=== PATIENT | female | born 1960 | race Caucasian/White ===

== ENCOUNTER 2020-06-14 10:20 | Emergency (ER) | payer BC, OTHER ==
[~2020-06-14] VITALS: Ht 157.5 cm; Wt 65.3 kg
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
[2020-06-14] MEDS ORDERED: EPINEPHRINE (1:1000) 1 MG/ML AMPUL ONE (10:37)
[2020-06-14] MEDS ORDERED: diphenhydrAMINE HCL 50 MG/ML VIAL ONE (10:37)
[2020-06-14] MEDS ORDERED: FAMOTIDINE/PF INJ 20 MG/2 ML VIAL IV ONE (10:38)
[2020-06-14] MEDS ORDERED: methylPREDNISolone SOD SUCC 125 MG/2ML VIAL ONE (10:38)
--- NOTE | 2020-06-14 10:38 | NUR ---
PT SEEN AND EXAMINED BY .
[2020-06-14] MEDS ORDERED: FAMOTIDINE (20 MG) 20 MG TABLET ONE (10:42)
--- NOTE | 2020-06-14 10:44 | NUR ---
PT REFUSED EKG. AWARE.
--- NOTE | 2020-06-14 10:45 | NUR ---
IV LINE ESTABLISHED BLOOD DRAWN AND SENT TO LAB.
[2020-06-14] MEDS ORDERED: IV NS 0.9% 1,000 ML BAG IV ONE (11:00)
[2020-06-14] MEDS ORDERED: diphenhydrAMINE HCL 50 MG/ML VIAL IV ONE (11:00)
[2020-06-14] MEDS ORDERED: EPINEPHRINE (1:1000) MDV 30 MG/30ML VIAL SUBCUT ONE (11:00)
[2020-06-14] MEDS ORDERED: FAMOTIDINE (20 MG) 20 MG TABLET PO ONE (11:00)
[2020-06-14] MEDS ORDERED: methylPREDNISolone SOD SUCC 125 MG/2ML VIAL IV ONE (11:00)
[2020-06-14 11:06] LABS: BASOPHILS % (AUTO) 0.3 % (0.0-2.0); HEMATOCRIT 49 % (33-45); HEMOGLOBIN 16.6 g/dL (11.5-14.8); LYMPHOCYTES % (AUTO) 25.4 % (20.0-44.0); MEAN CORPUSCULAR HGB CONC 34 g/dl (31.0-36.0); MEAN CORPUSCULAR VOLUME 94 fL (82-100); MONOCYTES # (AUTO) 0.6 /CMM (0.1-1.30); MONOCYTES % (AUTO) 7.5 % (2.0-12.0); NEUTROPHILS % (AUTO) 64.8 % (43.0-81.0); PLATELET COUNT (AUTO) 299 /CMM (150-450); RED BLOOD CELL COUNT(AUTO) 5.26 MIL/uL (4.0-5.2); WHITE BLOOD COUNT (AUTO) 7.8 K/uL (4.3-11.0)
[2020-06-14 11:12] LABS: CALCIUM, SERUM 8.9 mg/dL (8.5-10.1); CARBON DIOXIDE 26 mmol/L (21-32); CHLORIDE 99 mmol/L (98-107); CREATININE 0.8 mg/dL (0.6-1.3); GLUCOSE 128 mg/dL (74-106); POTASSIUM 3.8 mmol/L (3.5-5.1); SODIUM SERUM 136 mmol/L (136-145); UREA NITROGEN, BLOOD 14 mg/dL (7-18)
--- NOTE | 2020-06-14 12:46 | NUR ---
IV removed. Catheter intact and site benign. Pressure and 4x4 applied to site. No bleeding noted. Patient discharged to home in stable condition. Written and verbal after care instructions given. Patient verbalizes understanding of instruction.
[2020-06-14 12:47] VITALS: BP 127/74
== END 2020-06-14 12:48 | disposition home or self-care (01) ==
LOC: ER 10:22
DX: T63.441A Toxic effect of venom of bees, accidental (unintentional), initial encounter (principal); T78.2XXA Anaphylactic shock, unspecified, initial encounter; L50.9 Urticaria, unspecified; Y92.89 Other specified places as the place of occurrence of the external cause
CPT/HCPCS: 36415; 80048; 84484; 85025; 93005; 96361; 96372; 96374; 96375; 99284; J0171 ×2; J1200; J2930; J7030; J3490